=== PATIENT | male | born 1945 | race Caucasian/White ===

== ENCOUNTER → 2024-02-27 14:11 | Outpatient (REF) | payer MEDICARE, SELFPAY | LOC: RCS 14:11 | PROVIDERS: ATTENDING PHYSICIAN Internal Medicine; FAMILY PHYSICIAN Family Medicine | DX: I48.0 Paroxysmal atrial fibrillation (principal); I35.1 Nonrheumatic aortic (valve) insufficiency | CPT/HCPCS: 93017 ==

== ENCOUNTER → 2024-03-04 13:33 | Outpatient (REF) | payer MEDICARE, SELFPAY | LOC: RCS 13:33 | PROVIDERS: ATTENDING PHYSICIAN Internal Medicine; FAMILY PHYSICIAN Family Medicine | DX: I48.0 Paroxysmal atrial fibrillation (principal); I35.1 Nonrheumatic aortic (valve) insufficiency; I77.810 Thoracic aortic ectasia | CPT/HCPCS: 93306 ==

== ENCOUNTER → 2025-01-20 09:28 | Outpatient (REF) | payer MEDICARE, SELFPAY | LOC: DHVS 09:28 | PROVIDERS: ATTENDING PHYSICIAN Family Medicine | DX: Z87.891 Personal history of nicotine dependence (principal); Z13.6 Encounter for screening for cardiovascular disorders | CPT/HCPCS: 76770 ==